=== PATIENT | male | born 1945 | race Caucasian/White ===

== ENCOUNTER 2016-12-08 05:38 | Day surgery (SDC) | payer OTHER ==
[~2016-12-08] VITALS: Ht 175.3 cm; Wt 80.3 kg
--- NOTE | ~2016-12-08 | O ---
[facility] [place] [address] OPERATIVE REPORT Name: NEDSHIMON Inge Room #: DEP [facility].#: [id number] Admission: 12/08/16 Attend Phys: Brian Dutton MD Discharge: 12/08/16 Date of : 45 Report #: [id number] THIS REPORT FOR: //name// CC: Jeremy Dutton DATE OF SERVICE: 12/08/2016 PATIENT OF: Dr. Brian Dutton and Dr. Jeremy Mchugh. PREOPERATIVE DIAGNOSIS: Left inguinal hernia. POSTOPERATIVE DIAGNOSES: Left inguinal hernia with a left cord lipoma. PROCEDURE: Left inguinal hernia repair with Prolene hernia system mesh and excision of a left cord lipoma. SURGEON: Brian Dutton MD ANESTHESIA: Local IV sedation. DESCRIPTION OF PROCEDURE: The patient was brought to the operating room and placed on operative table in the supine position. Sequential compression devices were in place for DVT prophylaxis. There was no indication for preoperative antibiotics. The patient underwent IV sedation and was prepped and draped in a sterile fashion. Skin and subcutaneous tissue was then infiltrated with 0.5% Marcaine and 1% Xylocaine in a 1:1 mixture. Left inguinal skin incision was then performed using #10 scalpel blade. Hemostasis obtained using electrocautery. Dissection was carried down through the subcutaneous tissue using the electrocautery. Further hemostasis was obtained with clamps and 2-0 chromic ties and the electrocautery. The external oblique fascia was then identified and incised with a knife and opened with the Metzenbaum scissors. The ilioinguinal nerve was identified, dissected free and preserved. The cord was then elevated and held into place with a [place]hoe drain. Cremasteric muscle fibers were then split in the direction of fibers using clamp and electrocautery. A cord lipoma was identified, dissected free, clamped, excised and tied with a 2-0 chromic tie and sent as specimen to pathology. An indirect inguinal hernia sac was then identified, dissected free and reduced back through the internal ring. An extended Prolene hernia system mesh was then inserted through the internal ring and the underlay patch was then deployed in the preperitoneal space. The connector was left in the internal ring and the overlay patch was then deployed in the inguinal canal. The mesh was split and wrapped around the cord, secured to the inguinal ligament with simple interrupted 2-0 Vicryl suture. Mesh was also secured at the pubic tubercle, superiorly at the connector using simple interrupted 2-0 Vicryl sutures. The cord was then returned to the canal intact. The external oblique fascia was [address] [address] OPERATIVE REPORT Name: SHIMON MARINO Room #: DEP [facility] Jaclyn#: [id number] Admission: 12/08/16 Attend Phys: Brian Dutton MD Discharge: 12/08/16 Date of : 45 Report #: [id number] then closed using running 2-0 Vicryl suture. Venu's fascia was then reapproximated using 3 simple interrupted 2-0 chromic sutures and the skin then closed with a running 4-0 subcuticular Vicryl stitch. The wound was then dressed with Mastisol, half inch Steri-Strips cut in half, Telfa, 4 x 4 gauze, sponge and tape. The patient was then taken to the recovery room awake, alert and in good condition. Estimated blood loss was approximately 10 mL. The patient tolerated procedure well. All sponge, lap and instrument counts correct times 2. <ELECTRONICALLY SIGNED> By: Brian Dutton MD 12/09/16 1341 1439 1452 Brian Dutton MD /nt
--- NOTE | ~2016-12-08 | EKG ---
[place] [address] [facility] [place] [address] ELECTROCARDIOGRAM REPORT Name: MARINOSHIMON Room #: DEP [facility].#: [id number] Admission: 12/08/16 Attend Phys: Brian Dutton MD Discharge: 12/08/16 Date of : 45 Report #: [id number] THIS REPORT FOR: //name// [facility] Test Date: 2016-12-08 Test Time: 10:27:57 Pat Name: SHIMON MARINO Department: Room: 150 4 Gender: M Pomologist: SVETLANA : 1945 Requested By: Brian Dutton Order Number: [id number] MD: Dimas Wang Measurements Intervals Ranger Rate: 76 P: 51 MI: 173 QRS: 7 QRSD: 92 T: 61 QT: 387 QTc: 436 Interpretive Statements Sinus arrhythmia Premature ventricular complexes No previous ECG available for comparison Electronically Signed On 12-09-2016 7:48:24 CDT by Dimas Wang [email or web address] <ELECTRONICALLY SIGNED> By: Dimas Wang MD, [facility] 12/09/16 0748 1027 1027 Dimas Wang MD, FACC /EPI
--- NOTE | ~2016-12-08 | S ---
[facility] [place] [address] SURGICAL PATH RPT PROCEDURE Name: SHIMON MARINO Room #: DEP [facility].#: [id number] Admission: 12/08/16 Date of : 45 Discharge: 12/08/16 Report #: [id number] Path Case #: [id number] PATHOLOGY REPORT COLLECTION DATE: 12/08/2016 RECEIVED DATE: 12/08/2016 SUBMITTING PHYS: Dr. Brian Dutton OTHER PHYS: Dr. Jeremy Mchugh SPECIMEN(S) RECEIVED: A.Left cord lipoma * * * * * * * * * * * * FINAL DIAGNOSIS: Left cord lipoma, resection: - Mature adipose tissue compatible with a lipoma. - Reactive incidental lymph node associated with fatty replacement. (IUV:csd; d/t: 12/09/2016) PATHOLOGIST: Yoko Davis M.D. REPORT ELECTRONICALLY SIGNED BY: Yoko Davis M.D. DATE/TIME: 12/09/2016 16:51 * * * * * * * * * * * * GROSS PATHOLOGY: Received in formalin labeled "Shimon Marino, left cord lipoma," is a segment of lobulated fibroadipose tissue measuring 9.0 x 2.9 x 1.3 cm in maximum dimensions. Sectioning reveals homogeneous, bright yellow cut surfaces. Field Observer tissue is submitted in cassette A1. (KAH; 12/08/2016) CLINICAL HISTORY: Left inguinal hernia INITIAL CPT CODE(S): A; 54609 Professional services performed by [facility] at [facility] [address], [place] [address] Technical services performed by [facility] at [address] [place] [id number]. [facility] [address] [place] [address] SURGICAL PATH RPT PROCEDURE Name: SHIMON MARINO Room #: DEP [facility] Jaclyn#: [id number] Admission: 12/08/16 Date of : 45 Discharge: 12/08/16 Report #: [id number] Path Case #: [id number] [address] PHONE: [phone] DIRECTOR: Juan Manuel Titus M.D. * * * END OF REPORT * * *
[~2016-12-08 05:38] MED LIST: ASPIR 8181 MG PO; ATORVASTATIN CA40 MG PO; AVAPRO 150 MG150 M1 PO; CIALIS2.5 MG PO; ETODOLAC500 MG PO; FLAX SEED OIL1000 MG PO; FOLIC ACID1 MG PO; METHOTREXATE 22.5 MG PO; MULTI VITAMIN1 EACH PO; NORVASC5 MG PO; PRILOSEC 20 MG20 MG PO; VITAMIN D1000 UNI1 PO
[2016-12-08 11:00] VITALS: BP 146/74
[2016-12-08] MEDS ORDERED: NORCO 5-325 TA1 EACH PO (14:51)
[2016-12-08 15:01] VITALS: BP 146/74
== END 2016-12-08 15:40 | disposition home or self-care (01) ==
LOC: TBA 05:38 → OR 05:38
DX: K40.90 Unilateral inguinal hernia, without obstruction or gangrene, not specified as recurrent (principal); I10 Essential (primary) hypertension; E78.5 Hyperlipidemia, unspecified; K21.9 Gastro-esophageal reflux disease without esophagitis; M06.9 Rheumatoid arthritis, unspecified; Z98.890 Other specified postprocedural states
CPT/HCPCS: 50010; 50101; 50386; 50417; 54111; 56524; 56526; 56528; 62110; 62900; 70005